=== PATIENT | female | born 1955 | race Caucasian/White ===

== ENCOUNTER 2016-12-15 16:47 | Emergency (ER) | payer MEDICAID ==
[~2016-12-15 16:47] MED LIST: LEVO88TA4 PO; METH-38 PO; NAPR500T3 PO; PARO40TA45 PO
[2016-12-15 16:49] VITALS: BP 107/77
[2016-12-15] MEDS ORDERED: SULF1TAB24 PO (17:00)
--- NOTE | 2016-12-15 17:03 | ED.ADGEN ---
Past History Past Medical History: Depression, Hypothyroid, Other Past Surgical History: Other Alcohol Use: Heavy Drug Use: Other Adult General HPI HPI Patient is a 61-year-old female presents emergency department complaining of a 2 to three-day history of worsening redness, swelling, and pain to the right ring finger. Patient states that she believes is related to an infected manicure that she received. She has been putting "medicine" on the finger. She does not know what the medication is but reports that its a medicine is given to her in the past for a bug bite. She denies any fevers or chills. Denies any other intervention. Review of Systems Review of Systems Constitutional: Denies fever or chills [] Eyes: Denies change in visual acuity, redness, or eye pain [] HENT: Denies nasal congestion or sore throat [] Respiratory: Denies cough or shortness of breath [] Cardiovascular: No additional information not addressed in HPI [] GI: Denies abdominal pain, nausea, vomiting, bloody stools or diarrhea [] : Denies dysuria or hematuria [] Musculoskeletal: Denies back pain or joint pain [] Integument: Denies rash or skin lesions [] Neurologic: Denies headache, focal weakness or sensory changes [] Endocrine: Denies polyuria or polydipsia [] Allergies Allergies Allergies Coded Allergies Type Severity Reaction Last Updated Verified No Known Allergies Allergy Unknown 08/15/16 Yes Physical Exam Physical Exam Constitutional: Well developed, well nourished, no acute distress, non-toxic appearance. [] HENT: Normocephalic, atraumatic, bilateral external ears normal, oropharynx moist, no oral exudates, nose normal. [] Eyes: PERRLA, EOMI, conjunctiva normal, no discharge. [] Neck: Normal range of motion, no tenderness, supple, no stridor. [] Cardiovascular:Heart rate regular rhythm, no murmur [] Lungs & Thorax: Bilateral breath sounds clear to auscultation [] Skin: Warm, dry, right fourth finger paronychia with minimal to no fluctuance appreciated but it is swollen with tenderness to palpation. [] Back: No tenderness, no CVA tenderness. [] Extremities: No tenderness, no cyanosis, no clubbing, ROM intact, no edema. [] Neurologic: Alert and oriented X 3, normal motor function, normal sensory function, no focal deficits noted. [] Psychologic: Affect normal, judgement normal, mood normal. [] Current Patient Data Vital Signs Vital Signs Date Time Temp Pulse Resp B/P Pulse Ox O2 Delivery O2 Flow Rate FiO2 12/15/16 16:49 98.5 86 18 98 Room Air EKG EKG [] Radiology/Procedures Radiology/Procedures [] Course & Med Decision Making Course & Med Decision Making Pertinent Labs and Imaging studies reviewed. (See chart for details) [] Final Impression Final Impression Paronychia [] Problems: Dragon Disclaimer Dragon Disclaimer This electronic medical record was generated, in whole or in part, using a voice recognition dictation system. Incision and Drainage Indication: Paronychia Procedure: The patient was positioned appropriately and the skin over the incision site was cleansed. Local anesthesia was digital block with 1% lidocaine. A stab incision with 18 gauge needle was made along the nail bed. 5 mls purulent material was expressed. The patient tolerated the procedure well Complications: none ROSE DUMONT MD Dec 15, 2016 17:03
== END 2016-12-15 17:33 | disposition home or self-care (01) ==
LOC: ER 16:47
DX: L03.011 Cellulitis of right finger (principal); E03.9 Hypothyroidism, unspecified; F10.10 Alcohol abuse, uncomplicated
CPT/HCPCS: 10060; 99283-25

== ENCOUNTER 2018-09-02 06:25 | Emergency (ER) | payer SELFPAY ==
[~2018-09-02 06:25] MED LIST changes: +NAPR-514 PO; -NAPR500T3 PO; -PARO40TA45 PO; +PARO40TA61 PO; +SULF1TAB24 PO
[2018-09-02 07:00] VITALS: BP 127/69
[2018-09-02] MEDS ORDERED: hydrOXYzine HCL 25 MG TABLET PO ONE (07:00)
[2018-09-02] MEDS ORDERED: LEVO88TA4 PO (07:01)
[2018-09-02] MEDS ORDERED: HYDR25CA PO (07:01)
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
== END 2018-09-02 07:10 | disposition home or self-care (01) ==
LOC: ER 06:25
DX: F41.9 Anxiety disorder, unspecified (principal); Z76.0 Encounter for issue of repeat prescription; F32.9 Major depressive disorder, single episode, unspecified; E03.9 Hypothyroidism, unspecified; F10.20 Alcohol dependence, uncomplicated; Y90.9 Presence of alcohol in blood, level not specified
CPT/HCPCS: 99284